=== PATIENT | male | born 1995 | race African-American/Black ===

== ENCOUNTER 2021-11-08 17:11 | Emergency (ER) | payer MEDICAID, OTHER ==
[~2021-11-08] VITALS: Ht 177.8 cm; Wt 75.0 kg
[2021-11-08 17:22] VITALS: BP 140/89
[2021-11-08] MEDS ORDERED: SODIUM CHLORIDE 0.9% 1,000 ML IV NR (18:30)
== END 2021-11-08 19:35 | disposition home or self-care (01) ==
LOC: ER 17:11
DX: F15.188 Other stimulant abuse with other stimulant-induced disorder (principal); M79.18 Myalgia, other site; E86.0 Dehydration
CPT/HCPCS: 99281

== ENCOUNTER 2021-12-12 14:24 | Emergency (ER) | payer MEDICAID ==
[~2021-12-12] VITALS: Ht 167.6 cm; Wt 80.0 kg
[2021-12-12 14:42] VITALS: BP 116/78
== END 2021-12-12 16:20 | disposition home or self-care (01) ==
LOC: ER 14:24
DX: Z13.9 Encounter for screening, unspecified (principal)
CPT/HCPCS: 99281

== ENCOUNTER 2021-12-14 09:27 | Emergency (ER) | payer MEDICAID ==
[~2021-12-14] VITALS: Ht 177.8 cm; Wt 60.0 kg
[2021-12-14 09:31] VITALS: BP 134/77
[2021-12-14] MEDS ORDERED: TOPUD PO (09:47)
[2021-12-14] MEDS ORDERED: ACETAMINOPHEN 325MG TABLET PO ONE (10:00)
== END 2021-12-14 09:50 | disposition home or self-care (01) ==
LOC: ER 09:27
DX: R51.9 Headache, unspecified (principal); Z00.00 Encounter for general adult medical examination without abnormal findings; F15.10 Other stimulant abuse, uncomplicated; F20.9 Schizophrenia, unspecified
CPT/HCPCS: 93005; 99283

== ENCOUNTER 2023-02-06 17:03 | Emergency (ER) | payer OTHER, MEDICAID ==
[~2023-02-06] VITALS: Ht 172.7 cm; Wt 79.0 kg
[~2023-02-06 17:03] MED LIST: TOPUD PO
[2023-02-06 17:08] VITALS: O2SAT 100
[2023-02-06] MEDS ORDERED: LIDOCAINE HCL/PF 1% 10 MG/ML 5ML VIAL INFIL ONE (18:00)
[2023-02-06 20:02] VITALS: BP 125/86; PULSE 89; RESP 19; TEMP 98.3
== END 2023-02-06 20:04 | disposition home or self-care (01) ==
LOC: ER 17:03
DX: S01.511A Laceration without foreign body of lip, initial encounter (principal); F20.9 Schizophrenia, unspecified; F15.90 Other stimulant use, unspecified, uncomplicated; X58.XXXA Exposure to other specified factors, initial encounter; Y93.89 Activity, other specified; Y92.89 Other specified places as the place of occurrence of the external cause; Y99.8 Other external cause status
CPT/HCPCS: 70450; 70486; 12011; 99284; J3490; Z7610 ×3

== ENCOUNTER 2023-07-10 15:49 | Emergency (ER) | payer MEDICAID, OTHER ==
[~2023-07-10] VITALS: Ht 177.8 cm; Wt 68.0 kg
[2023-07-10 15:58] VITALS: BP 117/82; PULSE 84; RESP 18; TEMP 98.2; O2SAT 99
== END 2023-07-10 16:03 | disposition left against medical advice (07) ==
LOC: ER 15:49
DX: F15.10 Other stimulant abuse, uncomplicated (principal); F20.9 Schizophrenia, unspecified
CPT/HCPCS: 99283

== ENCOUNTER 2024-08-14 17:45 | Emergency (ER) | payer MEDICAID ==
[~2024-08-14] VITALS: Ht 175.3 cm; Wt 70.0 kg
[2024-08-14 17:50] VITALS: BP 153/81; TEMP 36.8; O2SAT 97
[2024-08-14 18:27] VITALS: PULSE 98; RESP 18; O2SAT 99
== END 2024-08-14 23:33 | disposition left against medical advice (07) ==
LOC: ER 17:45
DX: R68.89 Other general symptoms and signs (principal); Z53.21 Procedure and treatment not carried out due to patient leaving prior to being seen by health care provider

== ENCOUNTER 2024-08-24 05:16 | Emergency (ER) | payer MEDICAID ==
[~2024-08-24] VITALS: Ht 172.7 cm; Wt 76.0 kg
[2024-08-24 05:20] VITALS: TEMP 37; O2SAT 99
[2024-08-24 05:30] VITALS: BP 119/80; PULSE 88; RESP 18; O2SAT 99
== END 2024-08-24 05:33 ==
LOC: ER 05:16
DX: F10.90 Alcohol use, unspecified, uncomplicated (principal); F15.10 Other stimulant abuse, uncomplicated; Z00.00 Encounter for general adult medical examination without abnormal findings; Y90.9 Presence of alcohol in blood, level not specified
CPT/HCPCS: 99283